=== PATIENT | female | born 1970 | race Caucasian/White ===

== ENCOUNTER → 2016-10-05 | Day surgery (SDC) | payer OTHER ==
[~2016-10-05] MED LIST: ALBUTEROL MININEB NEB; ALBUTEROL17 GM INH; ASTELIN NASAL SPRAY; FLEXERIL10 MG PO; METHADOSE10 MG PO; MULTI VITAMIN1 EACH PO; PERCOCET10 PO; PROTONIX PO; SYMBICORT80 INH; TOPAMAX PO; VALIUM10 MG PO
--- NOTE | ~2016-10-05 | OR ---
Unit #: [id number] #: [id number] Patient: SLADE BROOKE [id number] [address] [place], [place] [address] [id number] O MR#: [id number] NAME: SLADE BROOKE ROOM: Date of Procedure: 10/05/2016 Admission Date: 10/05/2016 Surgeon: Alfonso Resendez M.D. : 1970 Attending Physician: Alfonso Resendez M.D. Primary Care Physician: Raudel Lu M.D. OPERATIVE REPORT PREOPERATIVE DIAGNOSES Back pain, radiculopathy, degenerative lumbar disk disease, facet disease. POSTOPERATIVE DIAGNOSES Back pain, radiculopathy, degenerative lumbar disk disease, facet disease. PROCEDURE PERFORMED Lumbar epidural steroid injection with intravenous sedation and fluoroscopic guidance for needle localization. INDICATIONS FOR PROCEDURE The patient is a 46-year-old female with return of bilateral lower extremity greater than back pain. She has known degenerative disk and facet disease. She is not a good surgical candidate. She treated medically and had done very well in the past with an epidural steroid injection in 03/2015, which settle her radicular pain until just recently, was begun to become significant again. At this time, she also had facet injections 2 separate times. This helped the back pain. The facet injections seemed to help the back pain. The epidural seemed to help the radicular pain. Plan at this point, based on return of radiculopathy, is to repeat epidural steroid injection. DESCRIPTION OF PROCEDURE The patient was placed in a seated position. Standard monitors were applied. 4 mg of Versed were given for sedation and anxiolysis, which were adequate. Vital signs remained stable. Sterile prep and drape then of the lumbar area was performed. The skin then at the L4-L5 level was localized with 1% lidocaine. An 18-gauge [email or web address] needle was then advanced via loss of resistance technique and fluoroscopic guidance in toward the epidural space. A long needle was required. After confirming proper positioning with fluoroscopy and radiographic contrast, a dose of 80 mg Depo-Medrol and 4 mL of 0.125% bupivacaine were deposited. The patient tolerated the procedure otherwise well and was discharged to the recovery room in stable condition. Dictated by... Alfonso Resendez M.D. LHP/modl Unit #: [id number] #: [id number] Patient: SLADE BROOKE TD: 10/05/2016 13:27 JOB #: [id number] OPERATIVE REPORT Page 1 of 1 X Alfonso Resendez MD X PROCEDURE OPERATIVE NOTE
== END | disposition home or self-care (01) ==
LOC: CCSC 10:08
DX: M51.16 Intervertebral disc disorders with radiculopathy, lumbar region (principal); M48.8X6 Other specified spondylopathies, lumbar region; E66.01 Morbid (severe) obesity due to excess calories; K21.9 Gastro-esophageal reflux disease without esophagitis; F41.9 Anxiety disorder, unspecified; F32.9 Major depressive disorder, single episode, unspecified
CPT/HCPCS: J1040; J2250

== ENCOUNTER → 2016-11-21 | Day surgery (SDC) | payer OTHER ==
--- NOTE | ~2016-11-21 | OR ---
Unit #: [id number] #: [id number] Patient: SLADE BROOKE [id number] [address] [place], [place] [address] [id number] O MR#: [id number] NAME: SLADE BROOKE ROOM: Date of Procedure: 11/21/2016 Admission Date: 11/21/2016 Surgeon: Alfonso Resendez M.D. : 1970 Attending Physician: Alfonso Resendez M.D. Referring Physician: Alfonso Resendez M.D. Primary Care Physician: Raudel Lu M.D. OPERATIVE REPORT PREOPERATIVE DIAGNOSES Low back pain, degenerative lumbar facet disease. POSTOPERATIVE DIAGNOSIS Low back pain, degenerative lumbar facet disease. PROCEDURE PERFORMED Lumbar facet injection x2 levels with intravenous sedation and fluoroscopic guidance for needle localization. INDICATIONS FOR PROCEDURE The patient is a 46-year-old female with multiple spine and back issues. She was treated with a single epidural steroid injection early September that resolved her bilateral lower extremity pain and left side of her back pain. Much of the back pain that remains likely facet mediated. She has done well with facet injections before. Based on history of pathology, symptomatology, and current response, plan is to repeat a trial of facet injections due to the flare of back pain that she rates a 10/10. DESCRIPTION OF PROCEDURE The patient was placed in a prone position. Standard monitors were applied. 2 mg of Versed were given for sedation and anxiolysis, which were adequate. Vital signs remained stable. Sterile prep and drape then of the lumbar area was performed. The skin then overlying first at L4-L5 and L5-S1 facets in the left and the L4-L5 and L5 facets on the right were localized with 1% lidocaine. At each of these levels, a long 22-gauge Quincke point spinal needle was advanced down with fluoroscopic guidance after confirming proper needle tip positioning with the edge of the respective facet joint. After this was confirmed with fluoroscopy, a dose of 1 mL of a mixture of 80 mg of Depo-Medrol and 3 mL of 0.25% bupivacaine were deposited at each joint. The needles were flushed and removed. The patient tolerated the procedure otherwise well. Dictated by... Alfonso Resendez M.D. LHP/jaquan TD: 11/21/2016 13:09 JOB #: [id number] Unit #: [id number] #: [id number] Patient: SLADE BROOKE CC: [facility] OPERATIVE REPORT Page 1 of 1 X Alfonso Resendez MD X PROCEDURE OPERATIVE NOTE
== END | disposition home or self-care (01) ==
LOC: CCSC 09:45
DX: M53.86 Other specified dorsopathies, lumbar region (principal); M51.16 Intervertebral disc disorders with radiculopathy, lumbar region; E66.01 Morbid (severe) obesity due to excess calories; K21.9 Gastro-esophageal reflux disease without esophagitis; F41.9 Anxiety disorder, unspecified; F32.9 Major depressive disorder, single episode, unspecified; Z88.5 Allergy status to narcotic agent; Z91.030 Bee allergy status; Z91.041 Radiographic dye allergy status; Z79.51 Long term (current) use of inhaled steroids; Z79.899 Other long term (current) drug therapy
CPT/HCPCS: J1040; J2250